=== PATIENT | female | born 1990 | race Caucasian/White ===

== ENCOUNTER 2016-07-26 08:53 | Emergency (ER) | payer OTHER ==
[~2016-07-26] VITALS: Ht 165.1 cm; Wt 91.5 kg
[~2016-07-26 08:53] MED LIST: IBUP-1222 PO; METF100P3 PO; OXYC-302 PO; PREN1TAB60 PO
[2016-07-26 08:58] VITALS: BP 149/82
[2016-07-26] MEDS ORDERED: DIPH,PERTUSS(ACELL),TET VAC/PF 0.5 ML IM-VACC ONE ×2 (09:30→09:31)
[2016-07-26] MEDS ORDERED: BACITRACIN ZINC OINT 500U/GM, 0.9 GM ONE (10:25)
== END 2016-07-26 10:36 | disposition home or self-care (01) ==
LOC: ED 10:27
DX: S16.1XXA Strain of muscle, fascia and tendon at neck level, initial encounter (principal); S50.812A Abrasion of left forearm, initial encounter; S90.31XA Contusion of right foot, initial encounter; Z23 Encounter for immunization; V43.51XA Car driver injured in collision with sport utility vehicle in traffic accident, initial encounter; Y93.89 Activity, other specified; Y99.8 Other external cause status; Y92.488 Other paved roadways as the place of occurrence of the external cause
CPT/HCPCS: 72050; 90471; 90715

== ENCOUNTER 2016-08-13 09:53 | Emergency (ER) | payer OTHER ==
[~2016-08-13] VITALS: Ht 165.1 cm; Wt 90.3 kg
[2016-08-13 11:03] LABS: ASPARTATE AMINO TRANSFERASE 20 U/L (15-37); BLOOD UREA NITROGEN 10 mg/dL (7-18)
[2016-08-13] MEDS ORDERED: MECLIZINE CHEWABLE 25 MG TAB ONE (11:07)
[2016-08-13] MEDS ORDERED: KETOROLAC 30 MG/1 ML ONE (11:07)
[2016-08-13] MEDS ORDERED: KETOROLAC 30 MG/1 ML IVPush ONE (11:30)
[2016-08-13] MEDS ORDERED: MECLIZINE CHEWABLE 25 MG TAB PO ONE (11:30)
[2016-08-13] MEDS ORDERED: SODIUM CHLORIDE 0.9% 1,000ML IVBOLUS ONE (11:30)
[2016-08-13 13:13] VITALS: BP 126/78
== END 2016-08-13 13:16 | disposition home or self-care (01) ==
LOC: ED 10:44
DX: H81.11 Benign paroxysmal vertigo, right ear (principal)
CPT/HCPCS: 36415; 80053; 84703; 85025; 93005; 96361; 96374; 99285; J1885; J7030

== ENCOUNTER 2017-08-21 16:18 | Outpatient (CLI) | payer OTHER ==
[~2017-08-21] VITALS: Ht 165.1 cm; Wt 103.6 kg
[2017-08-21 16:56] LABS: MICROSCOPIC INDICATED
[2017-08-21 17:30] LABS: BASOPHILS # (AUTO) 0.05 x10^3/uL (0-0.1); BASOPHILS % (AUTO) 0 % (0-1); EOSINOPHILS # (AUTO) 0.13 x10^3/uL (0-0.4); EOSINOPHILS % (AUTO) 1 % (1-7); LYMPHOCYTES # (AUTO) 2.44 x10^3/uL (1-3.4); LYMPHOCYTES % (AUTO) 15 % (22-44); MD NO; MEAN CORPUSCULAR HGB CONC 33.4 g/dL (32.4-35.8); MEAN CORPUSCULAR VOLUME 80.8 fL (80-100); MEAN PLATELET VOLUME 9.5 fL (7.4-10.4); MONOCYTES # (AUTO) 1.05 x10^3/uL (0.2-0.8); MONOCYTES % (AUTO) 6 % (2-9); NEUTROPHILS # (AUTO) 12.78 x10^3/uL (1.8-6.8); NEUTROPHILS % (AUTO) 78 % (42-75); PLATELET COUNT 218 x10^3/uL (130-400); RED BLOOD COUNT 4.29 x10^6/uL (3.82-5.3); RED CELL DISTRIBUTION WIDTH 15.3 % (9.6-15.2)
[2017-08-21 17:40] LABS: ALANINE AMINOTRANSFERASE 21 U/L (12-78); ALBUMIN 2.7 g/dL (3.4-5.0); ANION GAP 5 mmol/L (5-15); CHLORIDE 109 mmol/L (98-107); CREATININE 0.65 mg/dL (0.55-1.02)
[2017-08-21 17:41] LABS: BILIRUBIN, DIRECT < 0.1 mg/dL (0.1-0.2)
[2017-08-21 17:43] LABS: ALKALINE PHOSPHATASE 170 U/L (45-117); BILIRUBIN,TOTAL 0.2 mg/dL (0.2-1.0); TOTAL PROTEIN 6.9 g/dL (6.4-8.2)
== END 2017-08-21 18:26 | disposition home or self-care (01) ==
LOC: LDOP 16:18
PROVIDERS: ATTEND Obstetrics & Gynecology
DX: O26.893 Other specified pregnancy related conditions, third trimester (principal); R03.0 Elevated blood-pressure reading, without diagnosis of hypertension; Z3A.37 37 weeks gestation of pregnancy
CPT/HCPCS: 36415; 59025; 80053; 81001; 82248; 82570; 84156; 84550; 85025; 87081; 99201; G0463

== ENCOUNTER 2017-08-26 09:22 | Outpatient (CLI) | payer OTHER ==
[~2017-08-26] VITALS: Ht 165.1 cm; Wt 102.7 kg
[2017-08-26 09:49] VITALS: BP 117/80
[2017-08-26 09:55] LABS: BASOPHILS # (AUTO) 0.04 x10^3/uL (0-0.1); BASOPHILS % (AUTO) 0 % (0-1); EOSINOPHILS # (AUTO) 0.09 x10^3/uL (0-0.4); EOSINOPHILS % (AUTO) 1 % (1-7); LYMPHOCYTES # (AUTO) 2.13 x10^3/uL (1-3.4); LYMPHOCYTES % (AUTO) 15 % (22-44); MD NO; MEAN CORPUSCULAR HEMOGLOBIN 26.4 pg (27.0-34.8); MEAN CORPUSCULAR HGB CONC 32.8 g/dL (32.4-35.8); MEAN CORPUSCULAR VOLUME 80.3 fL (80-100); MEAN PLATELET VOLUME 9.2 fL (7.4-10.4); MONOCYTES % (AUTO) 4 % (2-9); NEUTROPHILS # (AUTO) 11.25 x10^3/uL (1.8-6.8); NEUTROPHILS % (AUTO) 80 % (42-75); PLATELET COUNT 210 x10^3/uL (130-400); RED BLOOD COUNT 4.42 x10^6/uL (3.82-5.3); RED CELL DISTRIBUTION WIDTH 15.4 % (9.6-15.2)
[2017-08-26 10:06] LABS: MICROSCOPIC INDICATED
[2017-08-26 10:08] LABS: ALANINE AMINOTRANSFERASE 19 U/L (12-78); ALBUMIN 2.5 g/dL (3.4-5.0); ANION GAP 9 mmol/L (5-15); CALCIUM 8.9 mg/dL (8.5-10.1); CHLORIDE 110 mmol/L (98-107); CREATININE 0.72 mg/dL (0.55-1.02)
[2017-08-26 10:09] LABS: CREATININE,URINE RANDOM 85.7 mg/dL
[2017-08-26 10:10] LABS: ALKALINE PHOSPHATASE 174 U/L (45-117); BILIRUBIN, DIRECT < 0.1 mg/dL (0.1-0.2); BILIRUBIN,TOTAL 0.3 mg/dL (0.2-1.0); TOTAL PROTEIN 6.7 g/dL (6.4-8.2)
== END 2017-08-26 10:45 | disposition home or self-care (01) ==
LOC: LDOP 09:22
PROVIDERS: ATTEND Obstetrics & Gynecology
DX: O13.3 Gestational [pregnancy-induced] hypertension without significant proteinuria, third trimester (principal); Z3A.37 37 weeks gestation of pregnancy
CPT/HCPCS: 36415; 59025; 80053; 81001; 82248; 82570; 84156; 84550; 85025; 99211; G0463

== ENCOUNTER 2019-02-22 05:07 | Inpatient (IN) | payer OTHER ==
[~2019-02-22] VITALS: Ht 165.1 cm; Wt 108.0 kg
[2019-02-22] MEDS ORDERED: NEWBORN KIT ONE (05:16)
[2019-02-22] MEDS ORDERED: OXYTOCIN 30U/ 0.9% NaCL 500ML 500 ML IV ONE (05:33)
[2019-02-22 05:44] VITALS: BP 128/76
[2019-02-22] MEDS ORDERED: PREN-3 PO (05:52)
[2019-02-22] MEDS ORDERED: NPH,100V5 SQ (05:53)
[2019-02-22] MEDS ORDERED: FENTANYL PF 100 MCG/2ML IV PRN (06:00)
[2019-02-22] MEDS ORDERED: TERBUTALINE 1 MG/ML, 1ML IVPush PRN (06:00)
[2019-02-22] MEDS ORDERED: FENTANYL PF 100 MCG/2ML IVPush PRN (06:00)
[2019-02-22] MEDS ORDERED: ONDANSETRON 2MG/ML, 2ML IVPush PRN ×2 (06:00→11:00)
[2019-02-22] MEDS ORDERED: TERBUTALINE 1 MG/ML, 1ML SQ PRN (06:00)
[2019-02-22] MEDS: LACTATED RINGERS 1,000 ML IV SCH ×2 (06:03→09:58)
[2019-02-22 06:25] LABS: BASOPHILS # (AUTO) 0.03 x10^3/uL (0-0.1); BASOPHILS % (AUTO) 0 % (0-1); EOSINOPHILS % (AUTO) 2 % (1-7); LYMPHOCYTES # (AUTO) 3.04 x10^3/uL (1-3.4); LYMPHOCYTES % (AUTO) 23 % (22-44); MD NO; MEAN CORPUSCULAR HEMOGLOBIN 27.2 pg (27.0-34.8); MEAN CORPUSCULAR HGB CONC 32.7 g/dL (32.4-35.8); MEAN PLATELET VOLUME 9.9 fL (7.4-10.4); MONOCYTES # (AUTO) 0.53 x10^3/uL (0.2-0.8); MONOCYTES % (AUTO) 4 % (2-9); NEUTROPHILS # (AUTO) 9.22 x10^3/uL (1.8-6.8); NEUTROPHILS % (AUTO) 71 % (42-75); PLATELET COUNT 189 x10^3/uL (130-400); RED BLOOD COUNT 4.45 x10^6/uL (3.82-5.3); RED CELL DISTRIBUTION WIDTH 15.5 % (9.6-15.2)
[2019-02-22] MEDS ORDERED: OXYTOCIN 30U/ 0.9% NaCL 500ML 500 ML IV PRN (06:31)
[2019-02-22] MEDS ORDERED: OXYTOCIN 30U/ 0.9% NaCL 500ML 500 ML ONE ×2 (06:33→14:35)
[2019-02-22] MEDS ORDERED: FENTANYL/BUPIV./NS/PF 250 ML EPIDCONT SCH ×2 (06:43→10:50)
[2019-02-22] MEDS ORDERED: BUPIVACAINE 0.25% ONE ×3 (10:22→12:15)
[2019-02-22] MEDS ORDERED: FENTANYL PF 100 MCG/2ML ONE ×2 (10:22)
[2019-02-22] MEDS ORDERED: LIDOCAINE/PF 1.5%-EPI 1:200K, 30ML ONE (10:22)
[2019-02-22] MEDS ORDERED: FENTANYL/BUPIV./NS/PF 250 ML EPIDCONT ONE (10:22)
[2019-02-22] MEDS ORDERED: LACTATED RINGERS 1,000 ML IV SCH (10:50)
[2019-02-22] MEDS ORDERED: EPHEDRINE 50 MG/ML, 1ML IVPush PRN (11:00)
[2019-02-22] MEDS ORDERED: LACTATED RINGERS 1,000 ML IVBOLUS PRN (11:00)
[2019-02-22] MEDS ORDERED: ACETAMINOPHEN 325 MG TABLET PO PRN (13:30)
[2019-02-22] MEDS ORDERED: ONDANSETRON 2MG/ML, 2ML IV PRN (13:30)
[2019-02-22] MEDS ORDERED: MISOPROSTOL 200 MCG TABLET PR PRN (13:30)
[2019-02-22] MEDS ORDERED: METOCLOPRAMIDE 5 MG/ML, 2ML IV PRN (13:30)
[2019-02-22] MEDS ORDERED: METHYLERGONOVINE 0.2 MG/ML IM PRN (13:30)
[2019-02-22] MEDS ORDERED: OXYcodone IR 5MG TABLET PO PRN (13:30)
[2019-02-22] MEDS ORDERED: SIMETHICONE 80 MG CHEW TAB PO PRN (13:30)
[2019-02-22] MEDS ORDERED: CARBOPROST TROMETHAMINE 250 MCG/ML, 1ML IM PRN (13:30)
[2019-02-22] MEDS ORDERED: IBUPROFEN 600 MG TABLET ONE (14:35)
[2019-02-22] MEDS: IBUPROFEN 600 MG TABLET PO PRN ×2 (14:38→20:49)
[2019-02-22] MEDS: OXYTOCIN 30U/ 0.9% NaCL 500ML 500 ML IV SCH ×2 (14:38→23:13)
[2019-02-22] MEDS ORDERED: DEXTROSE 47%, 15GM GEL ONE (16:09)
[2019-02-22 17:30] VITALS: BP 112/68
[2019-02-22 19:15] VITALS: BP 125/84
[2019-02-22] MEDS: DOCUSATE 100 MG CAPSULE PO PRN (20:49)
[2019-02-22] MEDS: ACETAMINOPHEN 325 MG TABLET PO PRN (22:35)
[2019-02-22] MEDS: OXYcodone IR 5MG TABLET PO PRN (22:35)
[2019-02-22 23:50] VITALS: BP 116/78
[2019-02-23 00:39] LABS: BASOPHILS # (AUTO) 0.04 x10^3/uL (0-0.1); BASOPHILS % (AUTO) 0 % (0-1); EOSINOPHILS # (AUTO) 0.25 x10^3/uL (0-0.4); EOSINOPHILS % (AUTO) 2 % (1-7); LYMPHOCYTES # (AUTO) 3.49 x10^3/uL (1-3.4); LYMPHOCYTES % (AUTO) 23 % (22-44); MD NO; MEAN CORPUSCULAR HEMOGLOBIN 27.2 pg (27.0-34.8); MEAN CORPUSCULAR HGB CONC 32.3 g/dL (32.4-35.8); MEAN CORPUSCULAR VOLUME 84.2 fL (80-100); MEAN PLATELET VOLUME 10.2 fL (7.4-10.4); MONOCYTES % (AUTO) 5 % (2-9); NEUTROPHILS # (AUTO) 10.66 x10^3/uL (1.8-6.8); NEUTROPHILS % (AUTO) 70 % (42-75); PLATELET COUNT 182 x10^3/uL (130-400); RED BLOOD COUNT 4.21 x10^6/uL (3.82-5.3); RED CELL DISTRIBUTION WIDTH 15.4 % (9.6-15.2)
[2019-02-23] MEDS: IBUPROFEN 600 MG TABLET PO PRN ×3 (02:43→15:28)
[2019-02-23 03:50] VITALS: BP 125/80
[2019-02-23] MEDS: ACETAMINOPHEN 325 MG TABLET PO PRN ×3 (03:57→15:28)
[2019-02-23] MEDS: OXYcodone IR 5MG TABLET PO PRN ×3 (03:57→15:28)
[2019-02-23 08:15] VITALS: BP 124/80
[2019-02-23] MEDS: DOCUSATE 100 MG CAPSULE PO PRN (08:43)
[2019-02-23] MEDS ORDERED: PRENATAL VIT/IRON/FA 1 EACH TABLET PO SCH (09:00)
[2019-02-23] MEDS: OXYTOCIN 30U/ 0.9% NaCL 500ML 500 ML IV SCH (09:13)
[2019-02-23] MEDS ORDERED: IBUP-1222 PO ×2 (17:17→17:18)
== END 2019-02-23 18:45 | disposition home or self-care (01) | DRG 806 ==
LOC: LDIP 05:07 → 2NW 16:42
PROVIDERS: ADMIT Obstetrics & Gynecology; ATTEND Obstetrics & Gynecology
PROC: 3E0R3BZ Introduction of Anesthetic Agent into Spinal Canal, Percutaneous Approach (ICD-10-PCS; principal; 2019-02-22)
PROC: 10E0XZZ Delivery of Products of Conception, External Approach (ICD-10-PCS; 2019-02-22)
PROC: 0HQ9XZZ Repair Perineum Skin, External Approach (ICD-10-PCS; 2019-02-22)
PROC: 10907ZC Drainage of Amniotic Fluid, Therapeutic from Products of Conception, Via Natural or Artificial Opening (ICD-10-PCS; 2019-02-22)
PROC: 00HU33Z Insertion of Infusion Device into Spinal Canal, Percutaneous Approach (ICD-10-PCS; 2019-02-22)
DX: O24.424 Gestational diabetes mellitus in childbirth, insulin controlled (principal); O99.12 Other diseases of the blood and blood-forming organs and certain disorders involving the immune mechanism complicating childbirth; Z37.0 Single live birth; O99.354 Diseases of the nervous system complicating childbirth; O70.0 First degree perineal laceration during delivery; D72.828 Other elevated white blood cell count; G43.909 Migraine, unspecified, not intractable, without status migrainosus; Z3A.38 38 weeks gestation of pregnancy
CPT/HCPCS: 36415; J3490; 82947; 82962; 85025; 86850; 86900; G0378; J3010; J2590; J7120